=== PATIENT | male | born 1990 | race Two or more races ===

== ENCOUNTER 2020-12-21 18:10 | Emergency (ER) | payer OTHER ==
[~2020-12-21] VITALS: Ht 162.6 cm; Wt 61.2 kg
--- NOTE | 2020-12-21 18:30 | NUR ---
BIB [facility],SYNCOPAL EPISODE AFTER GETTING COVID VACCINE. PATIENT ASSISTED TO BED 4, TONY AT BEDSIDE FOR EVAL.
--- NOTE | 2020-12-21 19:10 | NUR ---
PATIENT A/OX4, BREATHING EVEN AND UNLABORED, NO SOB NOTED. NEEDS ATTENDED.
--- NOTE | 2020-12-21 20:12 | NUR ---
Patient discharged to home in stable condition. Written and verbal after care instructions given. Patient verbalizes understanding of instruction.
[2020-12-21 20:13] VITALS: BP 116/62
== END 2020-12-21 20:13 | disposition home or self-care (01) ==
LOC: ER 18:12
DX: R55 Syncope and collapse (principal)
CPT/HCPCS: 82962-TC